=== PATIENT | male | born 1945 | race Caucasian/White ===

== ENCOUNTER 2018-11-01 01:52 | Inpatient (IN) ==
--- NOTE | 2018-11-01 02:59 | PROVIDER DOCUMENTATION ---
HPI-General Adult - General Stated Complaint: fall Time Seen by Provider: 11/01/18 01:59 Source: patient Allergies/Adverse Reactions: Patient Allergies Allergy/AdvReac Type Severity Reaction Status Date / Time No Known Allergies Allergy Verified 11/01/18 03:19 Home Medications: Home Medication List Medication Instructions Recorded Confirmed Last Taken Type Amlodipine Besylate 10 mg PO DAILY 05/15/13 03/11/18 11/21/13 08:00 History Carvedilol 50 mg PO BID 05/15/13 03/11/18 11/21/13 08:00 History Finasteride 5 mg PO DAILY 05/15/13 03/11/18 11/21/13 08:00 History Furosemide [Lasix] 80 mg PO DAILY 05/15/13 03/11/18 11/21/13 08:00 History Magnesium Oxide 400 mg PO DAILY 05/15/13 03/11/18 11/20/13 17:00 History ROSUVAstatin [Crestor] 20 mg PO QHS 05/15/13 03/11/18 11/20/13 21:00 History Sertraline HCl 100 mg PO DAILY 05/15/13 03/11/18 11/21/13 08:00 History Tamsulosin [Flomax] 0.4 mg PO DAILY 05/15/13 03/11/18 11/21/13 08:00 History Alprazolam [Xanax] 0.25 mg PO Q6H PRN PRN 11/21/13 03/11/18 11/21/13 18:00 History Clonidine [Catapres] 0.1 mg PO PRN PRN 11/21/13 03/11/18 Unknown History Digoxin 250 mcg PO QHS 11/21/13 03/11/18 11/20/13 17:00 History Docusate Sodium [Colace] 100 mg PO BID PRN PRN 11/21/13 03/11/18 Unknown History Famotidine [Pepcid] 20 mg PO PRN PRN 11/21/13 03/11/18 Unknown History Fluticasone 50 Mcg Nasal [place] 1 spray LAURA DAILY 11/21/13 03/11/18 11/21/13 08:00 History [Flonase] Magnesium Carbonate/Al Hydrox 1 each PO 4XDAY PRN PRN 11/21/13 03/11/18 11/21/13 15:00 History [Gaviscon] Phenytoin [Dilantin] 500 mg PO QHS 11/21/13 03/11/18 11/20/13 17:00 History Spironolactone [Aldactone] 25 mg PO QHS 11/21/13 03/11/18 11/20/13 17:00 History Tramadol HCl/Acetaminophen 1 each PO Q6H PRN PRN 11/21/13 03/11/18 11/21/13 18:00 History [Tramadol-Acetaminophn 37.5-325] Hydrocodone/Acetaminophen [[place] 1 ea PO Q6H PRN PRN #12 tab 10/20/18 Unknown Rx 5-325 Tablet] Walker [Ultra-Light Rollator] 1 ea MC DAILY #1 ea 10/20/18 Unknown Rx - History of Present Illness -Gen Adult Nature of Presenting Problems: A 72 Y/O MALE PRESENTS WITH C/O FALL AND LEFT HIP PAIN. PER THE PT HE WAS GETTING OUT OF THE CHAIR, PASSED OUT AND MAY HAVE HIT HIS HEAD HIS LEFT SIDE OF HEAD HURTS. PER EMS PT WAS TRYING TO GET OUT OF THE CHAIR AND FELL. PT WAS RECENTLY DX WITH LEFT FEMUR GREATER TROCHANTER FRACTURE. Review of Systems - Adult - REVIEW OF SYSTEMS - ADULT Constitutional: reports: no symptoms reported Eyes: reports: no symptoms reported Ears, Nose, Mouth & Throat: reports: no symptoms reported Cardiovascular: reports: no symptoms reported Respiratory: reports: no symptoms reported Gastrointestinal: reports: no symptoms reported Genitourinary: reports: no symptoms reported Musculoskeletal: reports: see HPI Integumentary: reports: no symptoms reported Neurological: reports: no symptoms reported Psychiatric: reports: no symptoms reported Past History - Adult - PAST MEDICAL HISTORY-ADULT Review of Records: reports: Nursing Assessment Review, Medications Reviewed, Social history reviewed & non-contributory. Cardiovascular: reports: CAD, CHF, HTN, hyperlipidemia Neurological: reports: other (head bleed) - PRIOR SURGERIES/PROCEDURES Surgical/Procedure History: reports: CABG, pacemaker Physical Exam-General - PHYSICAL EXAM-ADULT Initial Vital Signs Reviewed: Yes - CONSTITUTIONAL General Appearance: appears well, alert, mild distress - EYES Eyes: PERRL/EOMI - HEAD, EARS, NOSE, MOUTH & THROAT HENMT: normocephalic/atraumatic, moist mucous membranes, normal ENT inspection, TMs normal - NECK Neck: supple - RESPIRATORY Respiratory: chest non-tender, lungs clear, normal breath sounds, no pleuratic chest pain, no respiratory distress, no accessory muscle use - CARDIOVASCULAR Cardiovascular: regular rate, rhythm, no murmur - GASTROINTESTINAL (ABDOMEN) Abdominal Exam: non tender, soft - MUSCULOSKELETAL Back Exam: decreased range of motion (LEFT HIP) Extremity: no calf tenderness, pelvis stable, pedal edema (TRACE) Peripheral Pulses: dorsalis-pedis (R): 2+, dorsalis-pedis (L): 2+ - SKIN Integumentary: warm/dry. negative: abrasion(s) - NEUROLOGIC Neurologic: grossly normal - PSYCHIATRIC Psych/Mental Status: normal mood/affect, oriented x 3 Progress - PLAN OF CARE/RESULTS Progress/Plan/Lab Results: Orders Category Date Time Status CT HEAD/C-SPINE W/O CONTRAST [CT] Stat Exams 11/01/18 02:00 Ordered XRAY PELVIS W/HIP 2-3VW RT [RAD] Stat Exams 11/01/18 02:00 Ordered - CONSULTS/PCP/HOSPITALIST Notification #1 *Consult/PCP/Hospitalist*: D/W DR GALLEGO Time Discussed: 05:45 Consult Disposition: Admit #2 Consult: DR ARTHUR Time Discussed: 06:10 Reason/Comments: DISCUSSED THE CASE. Departure - Departure Date of Disposition Decision: 11/01/18 Time of Disposition Decision: 06:29 DIAGNOSIS: Greater trochanter fracture, Fracture of femur, left, closed Disposition: ADMITTED INPATIENT 09 Certified Medical Emergency: Emergent Condition: Stable Referrals and Follow-Ups: Yves Daniels MD [Primary Care Provider] - - Critical Care Note This patient required my direct & personal management of CC.: No Attestation - Physician/ GURWINDER Attestation Patient care was provided by Advanced Practice Provider:: No The physician spent face to face time with patient:: Yes Advanced Practice Provider documentation review:: Supervising physician onsite and consulted in the evaluation and care of this patient. The physician did have a face to face encounter with the patient.
[2018-11-01] MEDS ORDERED: DILAUDID IV ONE (03:20)
--- NOTE | 2018-11-01 04:39 | Diag Imaging Result Doc PS360 ---
EXAM: XRAY PELVIS W/HIP 2-3VW LT HISTORY: FALL TECHNIQUE: Pelvis and left hip, three views COMPARISON: 10/20/2018 FINDINGS: The femoral head is not dislocated from the acetabulum. There is a fracture to the greater trochanter with minimal displacement. No other fracture or dislocation. IMPRESSION: Fracture to the greater trochanter. Electronically signed by Hever Ho 11/01/2018 4:37 AM
--- NOTE | 2018-11-01 04:53 | Diag Imaging Result Doc PS360 ---
EXAM: FEMUR MIN 2 VIEWS LEFT HISTORY: FALL TECHNIQUE: Left femur, two views COMPARISON: None. FINDINGS: Each of these views include the mid and distal shafts of the femur. The proximal femurs not included. No fracture. No dislocation. IMPRESSION: No acute bony injury. Electronically signed by Hever Ho 11/01/2018 4:51 AM
--- NOTE | 2018-11-01 07:52 | HISTORY AND PHYSICAL ---
PRIMARY CARE PHYSICIAN: Dr. Daniels. CHIEF COMPLAINT: Fall. HISTORY OF PRESENT ILLNESS: A 72-year-old male with a history of CHF, hypertension, seizure disorder, paroxysmal atrial fibrillation, and hyperlipidemia who apparently had a fall earlier in the night. Patient states that he was getting up to walk and he fell and landed on his left side. The patient apparently fell about a week prior, and at that time he had a possible fracture and was sent home with physical therapy. The patient had imaging again today which did show a left greater trochanteric fracture. Subsequently, he will require admission for further management. At the time of my examination, he had denied any headache, fever, chills, chest pain, shortness of breath or any weight changes but complained of left hip pain. PAST MEDICAL HISTORY: Includes CHF with EF of 20%, coronary artery disease, hypertension, subarachnoid hemorrhage, hyperlipidemia, paroxysmal atrial fibrillation, and seizure disorder. PAST SURGICAL HISTORY: Coronary bypass, pacemaker defibrillator, and cholecystectomy. ALLERGIES: Klonopin. CURRENT MEDICATIONS: 1. Xanax 0.25 mg p.o. q.6 hours. 2. Amlodipine 10 mg p.o. daily. 3. Carvedilol 50 mg p.o. b.i.d. 4. Clonidine 0.1 mg p.o. daily. 5. Digoxin 250 mcg p.o. at bedtime. 6. Famotidine 20 mg p.o. daily. 7. Finasteride 5 mg p.o. daily. 8. Lasix 80 mg p.o. daily. 9. [place] 5/325 1 p.o. q.6 hours. 10. Phenytoin 500 mg p.o. at bedtime. 11. Rosuvastatin 20 mg p.o. at bedtime. 12. Sertraline 100 mg p.o. daily. 13. Spironolactone 25 mg p.o. at bedtime. 14. Tamsulosin 0.4 mg p.o. daily. SOCIAL HISTORY: No history of smoking, alcohol or illicit drug use. FAMILY HISTORY: Positive for coronary artery disease in father. REVIEW OF SYSTEMS: Fourteen point review of systems is as in HPI. Other systems negative. PHYSICAL EXAMINATION: GENERAL: Cooperative, friendly male. He is resting more comfortably. However, he is complaining of pain in his left hip region. Pulse 70, respirations 20, and blood pressure 133/73. HEENT: Extraocular movements intact. PERRLA. NECK: No masses. CHEST: Clear to auscultation. CARDIOVASCULAR: Regular rate and rhythm. ABDOMEN: Soft. Positive bowel sounds. EXTREMITIES: Left hip region tenderness. NEUROLOGIC: He is awake, alert, and oriented x2. : No bladder distention. SKIN: Warm. LABORATORIES AND STUDIES: X-ray of the hip and pelvis shows fracture of the greater trochanter. Other labs are pending. ASSESSMENT: A 72-year-old male with a history of CHF, hypertension, seizure disorder, subarachnoid hemorrhoids and atrial fibrillation who had presented to the emergency department after he had a fall. The patient had imaging done which did show a left greater trochanteric fracture. His case was discussed by ER physician with Orthopedics who recommended admission for further management. 1. Status post mechanical fall. 2. Left greater trochanteric fracture. 3. Seizure disorder. 4. Congestive heart failure. 5. Hypertension. PLAN: 1. We will admit patient to medical floor with telemetry. 2. Continue with supportive treatment by giving the patient adequate pain control and antiemetics as needed. 3. We will consult Orthopedics. 4. We will put patient on seizure precautions. 5. Monitor patient on telemetry. 6. We will monitor blood pressure closely. 7. We will continue to follow and reassess. Make further recommendations based on patient's clinical course. We will hold DVT prophylaxis with anticoagulation due to previous subarachnoid hemorrhage. cc: Antwan Buckley MD
[2018-11-01] MEDS ORDERED: ZOFRAN IV PRN (08:39)
[2018-11-01] MEDS ORDERED: DILAUDID IV PRN (08:39)
--- NOTE | 2018-11-01 09:16 | Diag Imaging Result Doc PS360 ---
EXAM: CT HEAD/C-SPINE W/O CONTRAST INDICATION: fALL TECHNIQUE: This exam was performed using automated exposure control, adjustment of mA or kV according to patient size, and/or use of iterative reconstruction technique. COMPARISON: CT head dated 03/11/2018 FINDINGS: Head: There is stable diffuse brain atrophy. There is no definite acute infarct given the limited sensitivity of CT versus MRI. There is no discrete intracranial mass, mass effect, or intracranial hemorrhage. The surrounding soft tissues are essentially unremarkable. The calvaria is intact. C-spine: There is a small sclerotic focus involving the anterior aspect of the C6 vertebral body that has the appearance of a vertical bone island. There is mild degenerative disc disease at several levels. The central canal appears to be largely patent. Otherwise, there is no discrete fracture, subluxation, or intrinsic osseous lesion. There is a single subcentimeter hypodense nodule at the upper pole of the left thyroid lobe. Surrounding soft tissues are essentially unremarkable, otherwise. IMPRESSION: 1.Stable brain atrophy but no evidence of acute intracranial pathology. 2.No evidence of fracture or other definite acute C-spine injury. Electronically signed by Horace uDmont 11/01/2018 9:12 AM
[2018-11-01] MEDS ORDERED: NITROGLYCERIN SL PRN (11:33)
[2018-11-01] MEDS ORDERED: FLONASE NAS PRN (11:33)
[2018-11-01] MEDS ORDERED: ENTRESTO 24 MG-26 MG TABLET PO ONE (12:07)
[2018-11-01] MEDS ORDERED: LASIX PO ONE (12:07)
[2018-11-01] MEDS ORDERED: ULTRAM PO PRN (12:20)
[2018-11-01 12:41] LABS: BASO# 0.03 X1000 (0.0-0.2); BASO% 0.6 % (0.0-0.8); EOS# 0.12 X1000 (0.0-0.7); EOS% 2.3 % (0.0-10.0); HEMATOCRIT 43.1 % (42.0-52.0); HEMOGLOBIN 14.7 g/dL (14.0-18.0); IMM GRAN# 0.03 X1000 (0.0-0.04); IMM GRAN% 0.6 % (0.0-0.5); LYMPH# 0.67 X1000 (1.2-3.4); LYMPH% 12.9 % (20.5-51.1); MCH 31.3 PG (27-31); MCHC 34.1 g/dL (33-37); MCV 91.9 FL (81-99); MONO# 0.48 X1000 (0.11-0.59); MONO% 9.2 % (1.7-9.3); MPV 9.2 FL (7.4-10.4); NEUT# 3.86 X1000 (1.4-6.5); NEUT% 74.4 % (42.2-75.2); PLT 127 X1000 (130-400); RBC 4.69 XMIL (4.7-6.1); RDW 13.8 % (11.5-14.5); WBC 5.19 X1000 (4.8-10.8)
--- NOTE | 2018-11-01 12:49 | PROGRESS NOTE ---
DATE: 11/01/2018 SUBJECTIVE: The patient has no complaints. He seems to be doing okay. OBJECTIVE: Vital Signs: Blood pressure 150/83, heart rate 69, respiratory 16, temperature 98 degrees, 96% on room air. Cardiovascular: Regular rate and rhythm. Pulmonary: Bilateral breath sounds clear to auscultation. Abdomen: Soft, nontender, nondistended. Bowel sounds are positive. LABORATORY DATA: I do not have any laboratory data. He has not had any all admission. They were ordered for tomorrow. PROBLEM LIST: 1. Left femur fracture. This apparently is not new. It is old and it does not look displaced and really does not look changed, and apparently it is a nonsurgical fracture. We will likely need PT and placement. 2. Congestive heart failure is relatively well compensated. We will continue to monitor and continue his regular medications. 3. Chronic pain disorder. We will continue to follow closely. Seems to be fairly stable. DISPOSITION: Pending clinical status but most likely will need rehab evaluation. cc: Stan Venegas MD
[2018-11-01 13:00] LABS: CALCIUM 8.6 mg/dL (8.8-10.2); CREATININE 1.3 mg/dL (0.7-1.2); POTASSIUM 4.1 mmol/L (3.5-5.1)
--- NOTE | 2018-11-01 15:24 | Diag Imaging Result Doc PS360 ---
EXAM: CHEST-1 VIEW HISTORY: REHAB TECHNIQUE: Portable chest single view COMPARISON: 03/13/2018 FINDINGS: Poor inspiratory effort. The heart is enlarged. There are sternal wires and surgical clips with a left-sided pacemaker. The vessels are not distended. There are no infiltrates. No effusion identified. IMPRESSION: Prominent cardiomegaly. Electronically signed by Hever Ho 11/01/2018 3:22 PM
[2018-11-01] MEDS: NORCO-7.5 PO PRN ×2 (15:49→21:19)
--- NOTE | 2018-11-01 17:51 | ORTHOPAEDICS CONSULTATION ---
DATE: 11/01/2018 CHIEF COMPLAINT: Left hip pain status post fall. HISTORY OF PRESENT ILLNESS: Mr. Cano is a 72-year-old male who a week ago sustained a fall and was seen in our office by Dr. Paul which at that time radiographic findings revealed a nondisplaced greater trochanteric fracture. The patient was sent home with home health physical therapy. He was doing well until he fell again and he presented to the emergency department where radiographic findings revealed a left greater trochanteric hip fracture that is nondisplaced and appears stable. He also has a large wound of his left knee with eschar which the patient states he has been on Bactrim for and was supposed to go to a wound care appointment today but canceled due to his hospital admission. PAST MEDICAL HISTORY: See the admission history and physical. PAST SURGICAL HISTORY: See the admission history and physical. ALLERGIES: See the admission history and physical. MEDICATIONS: See the admission history and physical. REVIEW OF SYSTEMS: Positive for left hip pain. All others negative. PHYSICAL EXAMINATION: General: This is a well developed, well nourished male. He is alert, oriented, cooperative with the examination. He is in no acute distress. Vital Signs: Stable, he is afebrile. HEENT: Head is normocephalic, atraumatic. Neck: Supple. Respiratory: Breathing is nonlabored. Abdomen: Nondistended. Neurologic: He discerns soft touch to his bilateral lower extremities. Gross motor function is intact. Musculoskeletal: He has tenderness over his left greater trochanter. He has good range of motion of his left hip without pain. Skin: There is a large eschar at his left knee with some surrounding erythema. There is no drainage noted. IMAGING: X-rays of his left hip reveal a nondisplaced greater trochanteric fracture. ASSESSMENT: Left nondisplaced greater trochanter fracture with left knee wound. PLAN: He is to be weightbearing as tolerated with a front wheel walker. We recommend that he be discharged to a rehab facility, once he is medically stable. We will continue his Bactrim. We will continue to manage his pain. We will get a wound care nurse to further evaluate and treat his wound on his left knee. Dictated by DARREN De Leon for Garth Grewal MD cc: DARREN De Leon, MD [facility]
[2018-11-01] MEDS: XANAX PO PRN (19:16)
[2018-11-01] MEDS: CRESTOR PO SCH (21:20)
[2018-11-01] MEDS: SEPTRA DS PO SCH (21:20)
[2018-11-01] MEDS: BENADRYL PO PRN (21:20)
[2018-11-01] MEDS: OCUVITE LUTEIN & ZEAXANTHIN PO SCH (21:20)
[2018-11-01] MEDS: ALDACTONE PO SCH (21:21)
[2018-11-01] MEDS: COREG PO SCH (21:21)
[2018-11-01] MEDS: ISMO PO SCH (21:21)
[2018-11-01] MEDS: DILANTIN PO SCH (21:21)
[2018-11-01] MEDS: LASIX PO SCH (21:22)
[2018-11-01] MEDS: ENTRESTO 24 MG-26 MG TABLET PO SCH (21:26)
[2018-11-02] MEDS: XANAX PO PRN ×3 (00:29→20:57)
[2018-11-02] MEDS: BENADRYL PO PRN ×4 (03:58→23:08)
[2018-11-02] MEDS: NORCO-7.5 PO PRN ×3 (04:03→20:58)
[2018-11-02] MEDS: GAVISCON PO PRN ×2 (04:07→11:38)
[2018-11-02 06:05] LABS: BASO# 0.02 X1000 (0.0-0.2); BASO% 0.3 % (0.0-0.8); EOS# 0.12 X1000 (0.0-0.7); HEMATOCRIT 41.5 % (42.0-52.0); HEMOGLOBIN 14.3 g/dL (14.0-18.0); IMM GRAN# 0.02 X1000 (0.0-0.04); IMM GRAN% 0.3 % (0.0-0.5); LYMPH# 1.07 X1000 (1.2-3.4); LYMPH% 18.2 % (20.5-51.1); MCH 31.5 PG (27-31); MCHC 34.5 g/dL (33-37); MCV 91.4 FL (81-99); MONO# 0.66 X1000 (0.11-0.59); MONO% 11.2 % (1.7-9.3); MPV 9.1 FL (7.4-10.4); NEUT# 3.99 X1000 (1.4-6.5); PLT 133 X1000 (130-400); RBC 4.54 XMIL (4.7-6.1); RDW 13.8 % (11.5-14.5); WBC 5.88 X1000 (4.8-10.8)
[2018-11-02 06:28] LABS: CREATININE 1.3 mg/dL (0.7-1.2)
[2018-11-02] MEDS: MAG-OX PO SCH (08:17)
[2018-11-02] MEDS: ZOLOFT PO SCH (08:17)
[2018-11-02] MEDS: ENTRESTO 24 MG-26 MG TABLET PO SCH ×2 (08:18→20:59)
[2018-11-02] MEDS: FLOMAX PO SCH (08:18)
[2018-11-02] MEDS: SEPTRA DS PO SCH ×2 (08:18→20:58)
[2018-11-02] MEDS: PROSCAR PO SCH (08:18)
[2018-11-02] MEDS: COENZYME Q10 PO SCH (08:19)
[2018-11-02] MEDS: COREG PO SCH ×2 (08:20→20:59)
[2018-11-02] MEDS ORDERED: LASIX PO SCH (09:00)
--- NOTE | 2018-11-02 09:14 | ORTHOPAEDICS PROGRESS NOTE ---
DATE: 11/02/2018 SUBJECTIVE: Mr. Cano is sitting up on the side of the bed, comfortable, in no apparent distress or pain, eating his breakfast. OBJECTIVE: His hip is mildly tender. His leg is neurovascularly intact. ASSESSMENT: Stable greater trochanter fracture. PLAN: He will probably need to just go to rehab. I have reassured him that this should heal normally. He can follow up with Dr. Paul once he is discharged. He will return to see me as needed. cc: Garth Grewal MD
[2018-11-02] MEDS: PATIENT'S OWN MED PO SCH (12:28)
--- NOTE | 2018-11-02 18:03 | PROGRESS NOTE ---
DATE: 11/02/2018 SUBJECTIVE: The patient is resting comfortably, he is sitting at the edge of the bed. He has no complaints. OBJECTIVE: Vital Signs: Temperature 98.2 degrees, blood pressure 112/66, heart rate 70, respirations 18, O2 saturations 96% on room air. General: This is a chronically ill-appearing elderly male sitting at the edge of the bed in no acute distress. Heart: S1, S2 normal. Regular rate and rhythm. Lungs: Equal air entry bilaterally. No crackles, no rales. Abdomen: Positive bowel sounds. Soft, nontender, nondistended. Extremities: No edema. The patient has chronic venous stasis. He also has a wound right below his left knee. Neuro: The patient is alert and oriented. LABS: White blood cell count 5.8, hemoglobin 14, hematocrit 41, platelets 133,000, sodium 142, potassium 4, chloride 103, CO2 is 26, BUN 25, creatinine 1.3, glucose 105. ASSESSMENT AND PLAN: 1. Nondisplaced greater trochanter fracture with a left knee wound. Continue with physical therapy and wound care. Patient has been accepted for inpatient rehab. We are currently awaiting insurance approval. 2. Chronic systolic congestive heart failure. Stable. 3. Morbid obesity. Aware. 4. Anxiety disorder. Continue on Xanax as needed. 5. Seizure disorder. Continue on Dilantin. 6. Benign prostatic hypertrophy. Continue on Flomax. 7. Disposition. The patient will be discharged to inpatient rehab once insurance approval has been granted. cc: Tiffanie Jeffery MD
[2018-11-02] MEDS: DILANTIN PO SCH (20:57)
[2018-11-02] MEDS: OCUVITE LUTEIN & ZEAXANTHIN PO SCH (20:58)
[2018-11-02] MEDS: LASIX PO SCH (20:58)
[2018-11-02] MEDS: ALDACTONE PO SCH (20:58)
[2018-11-02] MEDS: CRESTOR PO SCH (20:59)
[2018-11-02] MEDS: ISMO PO SCH (21:05)
[2018-11-03] MEDS: NORCO-7.5 PO PRN ×3 (00:36→11:48)
[2018-11-03 05:56] LABS: HEMATOCRIT 39.1 % (42.0-52.0); HEMOGLOBIN 13.5 g/dL (14.0-18.0); MCH 31.8 PG (27-31); MCHC 34.5 g/dL (33-37); MPV 9.1 FL (7.4-10.4); RBC 4.25 XMIL (4.7-6.1); WBC 5.29 X1000 (4.8-10.8)
[2018-11-03 06:17] LABS: CALCIUM 8.4 mg/dL (8.8-10.2); CREATININE 1.6 mg/dL (0.7-1.2); POTASSIUM 3.4 mmol/L (3.5-5.1)
[2018-11-03] MEDS ORDERED: KLOR-CON PO ONE (06:48)
[2018-11-03] MEDS: BENADRYL PO PRN ×2 (07:48→11:48)
[2018-11-03] MEDS: MAG-OX PO SCH (10:25)
[2018-11-03] MEDS: FLOMAX PO SCH (10:25)
[2018-11-03] MEDS: ENTRESTO 24 MG-26 MG TABLET PO SCH (10:26)
[2018-11-03] MEDS: COENZYME Q10 PO SCH (10:26)
[2018-11-03] MEDS: PROSCAR PO SCH (10:26)
[2018-11-03] MEDS: ZOLOFT PO SCH (10:27)
[2018-11-03] MEDS: COREG PO SCH (10:27)
[2018-11-03] MEDS: PATIENT'S OWN MED PO SCH (10:31)
[2018-11-03 10:39] LABS: URINE SOURCE CLEAN CATCH
[2018-11-03] MEDS: XANAX PO PRN (10:45)
[2018-11-03 10:50] LABS: BILIRUBIN URINE NEGATIVE (NEGATIVE); BLOOD URINE NEGATIVE (NEGATIVE); COLOR YELLOW; GLUCOSE URINE NEGATIVE (NEGATIVE); KETONE URINE NEGATIVE (NEGATIVE); LEUKOCYTES URINE NEGATIVE (NEGATIVE); NITRITE URINE NEGATIVE (NEGATIVE); PROTEIN URINE TRACE mg/dL (NEGATIVE); TURBIDITY URINE CLEAR (CLEAR); UROBILINOGEN URINE NORMAL (NORMAL)
[2018-11-03 10:51] LABS: UR EPITHELIAL CELLS <10 /HPF (<10); URINE BACTERIA NEGATIVE /HPF; URINE RBC <10 /HPF (<10); URINE WBC <10 /HPF (<10)
--- NOTE | 2018-11-03 11:27 | DISCHARGE SUMMARY ---
ADMISSION DATE: 11/01/2018 DISCHARGE DATE: 11/03/2018 FINAL DISCHARGE DIAGNOSES: 1. Nondisplaced left greater trochanteric fracture. 2. Left knee wound. 3. Chronic systolic congestive heart failure. 4. Morbid obesity. 5. Anxiety disorder. 6. Seizure disorder. 7. Benign prostatic hypertrophy. 8. Hypertension. 9. Cardiomyopathy with an ejection fraction of 20%. 10. Paroxysmal atrial fibrillation. 11. History of a subarachnoid hemorrhage. CONSULTATION: Orthopedic consultation with Dr. Grewal. IMAGIN. Head and cervical spine CT performed on 11/01/2018 that revealed no evidence of fracture or other definite acute C-spine injury. Brain atrophy. 2. Femur. The left femur x-ray performed on 11/01/2018 that revealed no fracture, no dislocation. 3. X-ray of the pelvis which revealed a fracture to the greater trochanter. 4. Portable chest x-ray which revealed cardiomegaly. HOSPITAL COURSE: Mr. Cano is a 72-year-old male with a history of multiple medical problems, who initially presented to the ER after suffering a fall. The patient states that he got up in the middle of the night and fell on his left side. Upon arrival to the ER, a pelvic x-ray was done that revealed a left greater trochanteric fracture. The patient was admitted to the Hospitalist Service and Orthopedic Surgery was consulted. The patient was assessed by the orthopedic surgeon and was told that he did not require surgery for this injury. Physical therapy was consulted during the hospitalization. The patient was advised to follow up with Dr. Paul once he is out of inpatient rehab. The patient is currently medically stable for discharge to inpatient rehabilitation. DISCHARGE MEDICATIONS: 1. [place] 7.5/325 one tab oral every 6 hours p.r.n. for pain. 2. Benadryl 25 mg oral every 6 hours p.r.n. for itching. 3. Flomax 0.4 mg oral daily. 4. Crestor 20 mg oral at bedtime. 5. Lasix 80 mg p.o. daily. 6. Coreg 50 mg p.o. twice a day. 7. Magnesium oxide 200 mg oral daily. 8. Zoloft 150 mg oral daily. 9. Finasteride 5 mg oral daily. 10. Aldactone 25 mg oral at bedtime. 11. Dilantin 500 mg oral at bedtime. 12. Flonase 1 spray intranasal p.r.n. 13. Colace 100 mg p.o. twice a day p.r.n. 14. Lasix 40 mg p.o. at bedtime. 15. Entrest[place] 1 tab oral twice a day. 16. Isosorbide mononitrate 20 mg p.o. at bedtime. 17. Xanax 0.25 mg oral every 6 hours p.r.n. for anxiety. 18. Nitroglycerin 0.4 mg sublingual every 5 minutes p.r.n. for chest pain. DISCHARGE DIET: Low-sodium, low-cholesterol diet. ACTIVITY: As tolerated. FOLLOW-UP INSTRUCTIONS: The patient will need to follow up with Dr. Paul upon discharge from inpatient rehabilitation. The patient will also need to follow up with Dr. Yves Daniels in 2 weeks. cc: Tiffanie Jeffery MD
[2018-11-03 12:14] VITALS: BP 98/60
[2018-11-03 14:05] LABS: UR CREAT RANDOM 98.3 mg/dL (14-26); UR PROT RANDOM 15.5 mg/dL
== END 2018-11-03 12:45 | DRG 536 ==
LOC: ED 01:52 → SUATTDRO 07:46 → 4N 07:46
PROVIDERS: ATTEND Internal Medicine
CPT/HCPCS: 70450; 71010; 71045; 72125; 73502; 73552; 80048; 80185; 81001; 82570; 83880; 83935; 84156; 84300; 85025; 85027; 97110; 97116; 97162; 97530; A9270; J1170; S0138